=== PATIENT | male | born 1980 | race Two or more races ===

== ENCOUNTER 2017-08-17 03:13 | Emergency (ER) | payer BC ==
[2017-08-17 03:38] VITALS: BP 149/87; PULSE 82; TEMP 98.3; BMI 24.7
--- NOTE | 2017-08-17 04:01 | PDOC ---
History of Present Illness - General Chief Complaint: Chest Pain Stated Complaint: CHEST PAIN Time Seen by Provider: 08/17/17 03:33 History Source: Patient Exam Limitations: No Limitations - History of Present Illness Initial Comments: 08/17/17 03:58 36 m with pmh of asthma presnets with 2 days of right sided chest pain reproducible on palpation, occasionally radiating to the neck. Exacerbated upon deep inspiration. Pain is worse today. Hasn't tried taking any medication. Grandfather had [place] in his 50's Past History - Past Medical History Allergies/Adverse Reactions: Allergies Allergy/AdvReac Type Severity Reaction Status Date / Time No Known Allergies Allergy Verified 08/17/17 03:35 Home Medications: Ambulatory Orders Ibuprofen 800 mg PO TID #30 tablet 06/28/16 Methocarbamol [Robaxin -] 1,500 mg PO Q8H #30 tablet 06/28/16 Oxycodone HCl/Acetaminophen [Percocet 10-325 mg Tablet] 1 each PO QID #20 tablet MDD 4 06/28/16 Asthma: Yes - Immunization History Immunization Up to Date: Yes - Suicide/Smoking/Psychosocial Hx Smoking History: Never smoked Have you smoked in the past 12 months: No Information on smoking cessation initiated: No Hx Alcohol Use: No Drug/Substance Use Hx: No Substance Use Type: None Review of Systems - Review of Systems Able to Perform ROS?: Yes Is the patient limited Danish proficient: No Constitutional: No: Symptoms Reported HEENTM: No: Symptoms Reported Respiratory: No: Symptoms reported Cardiac (ROS): Yes: See HPI ABD/GI: No: Symptoms Reported : No: Symptoms Reported Musculoskeletal: No: Symptoms Reported Integumentary: No: Symptoms Reported Neurological: No: Symptoms reported All Other Systems: Reviewed and Negative *Physical Exam - Vital Signs Last Vital Signs Temp Pulse Resp BP Pulse Ox 98.3 F 82 20 149/87 99 08/17/17 03:15 08/17/17 03:15 08/17/17 03:15 08/17/17 03:15 08/17/17 03:15 - Physical Exam General Appearance: Yes: Nourished, Appropriately Dressed. No: Apparent Distress HEENT: positive: EOMI, MARGARITO, Normal ENT Inspection Respiratory/Chest: positive: Chest Tender (right parasternal area), Lungs Clear , Normal Breath Sounds. negative: Respiratory Distress Cardiovascular: positive: Regular Rhythm, Regular Rate, S1, S2 Gastrointestinal/Abdominal: positive: Normal Bowel Sounds, Flat, Soft. negative : Tender Musculoskeletal: positive: Normal Inspection. negative: CVA Tenderness Extremity: positive: Normal Capillary Refill, Normal Inspection, Normal Range of Motion Integumentary: positive: Normal Color, Dry, Warm Neurologic: positive: Fully Oriented, Alert, Normal Mood/Affect Heart Score/ECG Review - History History: Slightly suspicious - Electrocardiogram EKG: Normal - Age Age: </= 45 - Risk Factors Risk Factors Heart Score: Yes Hx Hypertension, No Hx Diabetes, No Smoking History, Yes Positive family hx of cardiac disease, Yes Hx Obesity Based on the list above the patient has:: >/=3 risk factors or Hx atherosclerotic disease - Troponin Troponin: </= normal limit - Score Heart Score - Total: 2 ED Treatment Course - LABORATORY CBC & Chemistry Diagram: 08/17/17 04:20 08/17/17 04:20 - ADDITIONAL ORDERS Additional order review: Laboratory Results 08/17/17 04:20 Sodium 141 Potassium 3.7 Chloride 105 Carbon Dioxide 28 Anion Gap 8 BUN 12 Creatinine 0.8 Creat Clearance w eGFR > 60 Random Glucose 119 H Calcium 8.8 Total Bilirubin 0.3 AST 20 ALT 40 Alkaline Phosphatase 94 Creatine Kinase 87 Troponin I < 0.02 Total Protein 7.3 Albumin 3.6 08/17/17 04:20 RBC 4.91 MCV 85.7 MCHC 32.8 RDW 13.6 MPV 9.0 Neutrophils % 69.2 Lymphocytes % 22.9 Monocytes % 6.1 Eosinophils % 1.5 Basophils % 0.3 Medical Decision Making - Medical Decision Making 08/17/17 05:27 EKG: normal sinus rhythm. Normal EKG Trops not elevated. Slightly elevateed wbc. Will give cardiology referral and d/c *DC/Admit/Observation/Transfer Diagnosis at time of Disposition: Chest pain, atypical - Discharge Dispostion Disposition: HOME Condition at time of disposition: Improved Admit: No - Referrals Referrals: Calvin Sotomayor [Primary Care Provider] - Eddy Ortiz MD [Staff Physician] - - Patient Instructions Printed Discharge Instructions: DI for Atypical Chest Pain Additional Instructions: Follow up with your cardiology referral Dr. Ortiz within the next 5 days. Come back to the ER immediately for any new, worsening or concerning symptom. - Post Discharge Activity
--- NOTE | 2017-08-17 04:02 | PDOC ---
Attending Attestation - Resident Resident Name: Erick Calvillo - ED Attending Attestation I have performed the following: I have examined & evaluated the patient, The case was reviewed & discussed with the resident, I agree w/resident's findings & plan, Exceptions are as noted <Clemente James - Last Filed: 08/17/17 04:02> - HPI HPI: 08/17/17 04:13 The patient is a 36 year old male with a history of asthma who presents to the emergency department with right sided chest pain beginning approximately 2 days ago. He describes his chest pain as localized in the right side with occasional radiation to the neck, which is aggravated by deep inspiration and cough. He denies any recent weight bearing. Family history notable for [place] (father at age 50s). Allergies: NKDA PCP: Dr. Sotomayor <Librado Castañeda - Last Filed: 08/17/17 04:13> Heart Score/ECG Review #1 08/17/17 04:13 Vent rate 80 bpm Normal sinus rhythm Nonspecific T wave abnormality Abnormal ECG <Librado Castañeda - Last Filed: 08/17/17 04:13>
[2017-08-17 04:26] LABS: BASO % 0.3 % (0-2.0); EOS % 1.5 % (0-4.5); HEMATOCRIT 42.1 % (35.4-49); HEMOGLOBIN 13.8 GM/dL (11.7-16.9); LYMPH % 22.9 % (8-40); MCH 28.1 pg (25.7-33.7); MCHC 32.8 g/dl (32.0-35.9); MEAN CELL VOLUME 85.7 fl (80-96); MONO % 6.1 % (3.8-10.2); NEUT % 69.2 % (42.8-82.8); PLATELET COUNT 309 K/MM3 (134-434); RBC 4.91 M/mm3 (4.00-5.60); RDW 13.6 % (11.9-15.9); WHITE BLOOD COUNT 13.7 K/mm3 (4.0-10.0)
[2017-08-17 04:49] LABS: ALBUMIN 3.6 g/dl (3.4-5.0); ANION GAP 8 (8-16); BILIRUBIN,TOTAL 0.3 mg/dL (0.2-1.0); BLOOD UREA NITROGEN 12 mg/dL (7-18); CALCIUM 8.8 mg/dL (8.5-10.1); CHLORIDE 105 mmol/L (98-107); CO2 28 mmol/L (21-32); CREATININE 0.8 mg/dL (0.7-1.3); GLUCOSE,RANDOM 119 mg/dL (74-106); POTASSIUM 3.7 mmol/L (3.5-5.1); SGOT/AST 20 U/L (15-37); SGPT/ALT 40 U/L (12-78); SODIUM 141 mmol/L (136-145); TOT PROT 7.3 g/dl (6.4-8.2)
[2017-08-17 04:52] LABS: ALK PHOS 94 U/L (45-117)
[2017-08-17] MEDS ORDERED: IBUPROFEN 400 MG TABLET (FP) PO ONE ×2 (05:28→05:37)
--- NOTE | 2017-08-17 09:03 | EKG ---
Test Reason : Blood Pressure : / mmHG Vent. Rate : 078 BPM Atrial Rate : 078 BPM P-R Int : 202 ms QRS Dur : 084 ms QT Int : 376 ms P-R-T Axes : 049 014 010 degrees QTc Int : 428 ms NORMAL SINUS RHYTHM NONSPECIFIC T WAVE ABNORMALITY ABNORMAL ECG NO PREVIOUS ECGS AVAILABLE Confirmed by KATE JOYNER MD ([id number]) on 08/17/2017 9:02:51 AM Referred By: Confirmed By:KATE JOYNER MD
== END 2017-08-17 05:39 | disposition home or self-care (01) ==
LOC: JER 03:13
DX: R07.89 Other chest pain (principal)
CPT/HCPCS: 36415; 80053; 82550; 84484; 85025; 93005; 93010; 99282-25